=== PATIENT | male | born 1945 | race Caucasian/White ===

== ENCOUNTER 2017-11-08 00:26 | Inpatient (IN) | payer MEDICARE, BC ==
[2017-11-08] MEDS ORDERED: ASPIRIN 81 MG CHEWABLE CTB PO STA (00:28)
[2017-11-08] MEDS ORDERED: SODIUM CHLORIDE 0.9% FLUSH 10 ML SOL IV PRN (00:28)
[2017-11-08] MEDS ORDERED: NITROGLYCERIN 0.4 MG TAB SL PRN (00:28)
[2017-11-08] MEDS ORDERED: ALBUTEROL/IPRATROPIUM 1 VIAL SOL INH ONE ×2 (00:32→01:05)
[2017-11-08] MEDS ORDERED: FUROSEMIDE 40 MG SOL IV ONE (00:33)
[2017-11-08] MEDS ORDERED: ALBUTEROL/IPRATROPIUM 1 VIAL SOL ONE ×2 (00:36→01:02)
[2017-11-08] MEDS ORDERED: FUROSEMIDE 40 MG SOL ONE (00:36)
[2017-11-08 00:43] LABS: BASOPHILS % (AUTO) 1 % (0-3); EOSINOPHILS % (AUTO) 0 % (0-9); HEMATOCRIT 44 % (39-53); LYMPHOCYTES % (AUTO) 18.5 % (10-50); MEAN CORPUSCULAR HEMOGLOBIN 28.1 pg (27.0-32.0); MEAN CORPUSCULAR HGB CONC 31.7 gm/dl (32.0-36.0); MEAN CORPUSCULAR VOLUME 89 fL (80-100); MONOCYTES % (AUTO) 8.8 % (0-12); NEUTROPHILS % (AUTO) 71.7 % (37-80)
[2017-11-08 00:56] LABS: CARBON DIOXIDE 31.9 mEq/L (21-32); CREATININE 1.12 mg/dl (0.80-1.30); INR 0.96 (0.86-1.12); POTASSIUM 4.3 mMol/L (3.5-5.1); TROP I 0.018 ng/ml (0.000-0.056)
[2017-11-08] MEDS ORDERED: MORPHINE SULFATE 10 MG/ML SOL IM ONE (01:00)
[2017-11-08 01:04] LABS: ABG PH 7.36 (7.35-7.45)
[2017-11-08] MEDS ORDERED: SOLUMEDROL 125 MG/2 ML 125 MG/2 ML PDS IV ONE (02:24)
[2017-11-08] MEDS ORDERED: SOLUMEDROL 125 MG/2 ML 125 MG/2 ML PDS ONE (03:01)
[2017-11-08] MEDS: ALBUTEROL/IPRATROPIUM 1 VIAL SOL INH PRN ×3 (07:44→17:22)
[2017-11-08] MEDS: SOLUMEDROL 125 MG/2 ML 125 MG/2 ML PDS IV SCH ×2 (07:47→14:23)
[2017-11-08] MEDS ORDERED: Non-Formulary Medication MISC (Flecainide Acetate 50 mg) PO SCH (09:00)
[2017-11-08] MEDS ORDERED: ALLOPURINOL 100 MG TAB PO SCH (09:00)
[2017-11-08] MEDS ORDERED: TAMSULOSIN HYDROCHLORIDE 0.4 MG CAP PO SCH (09:00)
[2017-11-08] MEDS ORDERED: PREDNISONE 10 MG TAB PO SCH (09:00)
[2017-11-08] MEDS ORDERED: ARFORMOTEROL TARTRATE NEB SCH (09:00)
[2017-11-08] MEDS ORDERED: LOSARTAN POTASSIUM 50 MG TAB PO SCH (09:00)
[2017-11-08] MEDS ORDERED: GABAPENTIN 300 MG CAP PO SCH (09:00)
[2017-11-08] MEDS ORDERED: METOPROLOL SUCCINATE 50 MG ER TAB PO SCH (09:00)
[2017-11-08] MEDS ORDERED: FUROSEMIDE 20 MG TAB PO SCH (09:00)
[2017-11-08] MEDS ORDERED: FINASTERIDE 5 MG TAB PO SCH (10:00)
[2017-11-08] MEDS ORDERED: FLECAINIDE ACETATE 50 MG TAB PO SCH (10:00)
[2017-11-08 16:10] VITALS: BP 130/76; TEMP 98
[2017-11-08 17:34] VITALS: O2SAT 93
[2017-11-08 17:53] VITALS: PULSE 70; RESP 26
[2017-11-10] MEDS ORDERED: AZITHROMYCIN 250 MG TAB PO SCH (04:42)
== END 2017-11-08 17:45 | disposition home or self-care (01) | DRG 305 ==
LOC: ED 00:26 → ACUTE CARE 03:49
PROVIDERS: ADMIT Family Medicine; ATTEND Family Medicine
DX: R06.02 Shortness of breath (principal); J44.1 Chronic obstructive pulmonary disease with (acute) exacerbation; R06.03 Acute respiratory distress; F06.4 Anxiety disorder due to known physiological condition; I48.91 Unspecified atrial fibrillation; I10 Essential (primary) hypertension
CPT/HCPCS: 36415; 36600; 71045; 80048; 82550; 82803; 83880; 84484; 85025; 85610; 85730; 93005; 94640; 94660; 94760; 96374; 96375; 99236; 99285; J1940; J2930; A9270-GY